=== PATIENT | male | born 1965 | race Caucasian/White ===

== ENCOUNTER 2017-04-12 14:42 | Emergency (ER) | payer OTHER ==
[~2017-04-12] VITALS: Ht 177.8 cm; Wt 81.6 kg
[~2017-04-12 14:42] MED LIST: CELE200C PO; FOLI-43 PO; METH2.5T PO; OMEP20CA10 PO; PLA200 PO; PRED2.5T4 PO
[2017-04-12 14:53] VITALS: BP_SYST 141
[2017-04-12] MEDS: ACETAMINOPHEN 325 MG TABLET PO ONE (15:39)
[2017-04-12] MEDS: IBUPROFEN 600 MG TABLET PO ONE (15:39)
[2017-04-12 18:20] VITALS: BP_SYST 140
== END 2017-04-12 18:20 | disposition home or self-care (01) ==
LOC: SED 14:42
DX: S32.2XXA Fracture of coccyx, initial encounter for closed fracture (principal); S09.90XA Unspecified injury of head, initial encounter; M25.522 Pain in left elbow; M06.9 Rheumatoid arthritis, unspecified; Z88.8 Allergy status to other drugs, medicaments and biological substances; W19.XXXA Unspecified fall, initial encounter; Y93.89 Activity, other specified; Y92.89 Other specified places as the place of occurrence of the external cause; Y99.8 Other external cause status
CPT/HCPCS: 70450-TC; 72125-TC; 72170-TC; 72220-TC; 99284

== ENCOUNTER 2019-06-20 09:31 | Emergency (ER) | payer OTHER ==
[~2019-06-20] VITALS: Ht 177.8 cm; Wt 81.6 kg
[~2019-06-20 09:31] MED LIST changes: +HYDR200T80 PO; -OMEP20CA10 PO; +OMEP20CA11 PO; -PLA200 PO
[2019-06-20 09:46] VITALS: BP_SYST 140
[2019-06-20] MEDS ORDERED: CHLORTHALIDONE PO (09:46)
[2019-06-20] MEDS ORDERED: PREDNISONE 20 MG TABLET PO ONE (10:00)
[2019-06-20] MEDS ORDERED: KETOROLAC TROMETHAMINE 60 MG/2 ML VIAL IM ONE (10:00)
[2019-06-20 11:06] VITALS: BP_SYST 140
== END 2019-06-20 11:07 | disposition home or self-care (01) ==
LOC: SED 09:31
DX: M13.80 Other specified arthritis, unspecified site (principal); Z79.899 Other long term (current) drug therapy; Z88.8 Allergy status to other drugs, medicaments and biological substances
CPT/HCPCS: 96372; 99283; J1885; J7512

== ENCOUNTER 2021-07-09 14:14 | Emergency (ER) | payer OTHER, MEDICAID ==
[~2021-07-09] VITALS: Ht 177.8 cm; Wt 83.9 kg
[~2021-07-09 14:14] MED LIST changes: +CHLORTHALIDONE PO; -HYDR200T80 PO; -OMEP20CA11 PO; +OMEP20CA15 PO
[2021-07-09 14:22] VITALS: BP_SYST 144
[2021-07-09 14:50] LABS: BASOPHILS # (AUTO) 0.1 K/uL (0.0-0.2); BASOPHILS % (AUTO) 0.6 % (0.0-2.0); EOSINOPHILS # (AUTO) 0.2 K/uL (0.0-0.4); EOSINOPHILS % (AUTO) 1.2 % (0.0-4.0); HEMATOCRIT 42.6 % (36-54); HEMOGLOBIN 14.3 g/dL (14.0-18.0); LYMPHOCYTES # (AUTO) 1.2 K/uL (1.0-5.5); LYMPHOCYTES % (AUTO) 9.4 % (20.5-51.5); MEAN CORPUSCULAR HEMOGLOBIN 30 pg (27-31); MEAN CORPUSCULAR HGB CONC 34 % (32-36); MEAN CORPUSCULAR VOLUME 89 fL (79.0-98.0); MONOCYTES # (AUTO) 0.6 K/uL (0.0-1.0); MONOCYTES % (AUTO) 5.2 % (1.7-9.3); NEUTROPHILS # (AUTO) 10.5 K/uL (1.8-7.7); NEUTROPHILS % (AUTO) 83.6 % (40.0-70.0); PLATELET COUNT (AUTO) 331 K/uL (130-430); RED CELL DISTRIBUTION WIDTH 13.5 % (9.0-15.0); WHITE BLOOD COUNT (AUTO) 12.6 K/uL (4.8-10.8)
[2021-07-09 15:08] LABS: CALCIUM 8.6 mg/dL (8.4-11.0); CREATININE 0.73 mg/dL (0.55-1.30); POTASSIUM 3.4 mmol/L (3.5-5.1)
[2021-07-09 15:17] LABS: ALBUMIN 3.1 g/dL (3.4-4.8); TOTAL BILIRUBIN 0.3 mg/dL (0.0-1.0)
[2021-07-09 16:26] LABS: BILIRUBIN,URINE NEGATIVE (NEGATIVE); BLOOD, URINE NEGATIVE (NEGATIVE); CLARITY/URINE CLEAR (CLEAR); COLOR,URINE YELLOW (YELLOW); GLUCOSE,URINE NEGATIVE (NEGATIVE); KETONES,URINE NEGATIVE (NEGATIVE); LEUKOCYTE ESTERASE ,URINE NEGATIVE (NEGATIVE); NITRITE, URINE NEGATIVE (NEGATIVE); PH,URINE 6.5 (5.0-8.0); PROTEIN URINE NEGATIVE (NEGATIVE); UROBILINOGEN,URINE 0.2 (0.2-1.0)
[2021-07-09 18:36] VITALS: BP_SYST 133
== END 2021-07-09 18:35 | disposition home or self-care (01) ==
LOC: SED 14:14
DX: R07.89 Other chest pain (principal); I10 Essential (primary) hypertension; Z88.8 Allergy status to other drugs, medicaments and biological substances; Z79.899 Other long term (current) drug therapy
CPT/HCPCS: 36415; 71045; 80053; 81003; 84484; 85025; 93005; 99285

== ENCOUNTER 2022-03-15 11:50 | Emergency (ER) | payer OTHER, MEDICAID ==
[~2022-03-15] VITALS: Ht 180.3 cm; Wt 83.9 kg
--- NOTE | 2022-03-15 11:52 | NUR ---
Pt brought by self, A&Ox4, pt presents to ER with lower back pain, blood and difficulty with urination, skin pink and warm, respirations even and unlabored, cap refill <3.
[2022-03-15 12:18] VITALS: BP_SYST 167
[2022-03-15 12:51] LABS: BILIRUBIN,URINE NEGATIVE (NEGATIVE); BLOOD, URINE 3+ (NEGATIVE); CLARITY/URINE CLOUDY (CLEAR); COLOR,URINE BROWN (YELLOW); GLUCOSE,URINE NEGATIVE (NEGATIVE); KETONES,URINE TRACE (NEGATIVE); LEUKOCYTE ESTERASE ,URINE NEGATIVE (NEGATIVE); NITRITE, URINE NEGATIVE (NEGATIVE); PROTEIN URINE 2+ (NEGATIVE); UROBILINOGEN,URINE 0.2 (0.2-1.0)
[2022-03-15 13:01] LABS: BASOPHILS # (AUTO) 0.1 K/uL (0.0-0.2); BASOPHILS % (AUTO) 0.6 % (0.0-2.0); EOSINOPHILS # (AUTO) 0.2 K/uL (0.0-0.4); EOSINOPHILS % (AUTO) 1.4 % (0.0-4.0); HEMATOCRIT 44.6 % (36-54); LYMPHOCYTES # (AUTO) 0.8 K/uL (1.0-5.5); LYMPHOCYTES % (AUTO) 6.7 % (20.5-51.5); MEAN CORPUSCULAR HEMOGLOBIN 30 pg (27-31); MEAN CORPUSCULAR HGB CONC 34 % (32-36); MEAN CORPUSCULAR VOLUME 88 fL (79.0-98.0); MONOCYTES # (AUTO) 0.7 K/uL (0.0-1.0); MONOCYTES % (AUTO) 6.4 % (1.7-9.3); NEUTROPHILS # (AUTO) 9.7 K/uL (1.8-7.7); NEUTROPHILS % (AUTO) 84.9 % (40.0-70.0); PLATELET COUNT (AUTO) 343 K/uL (130-430); RED BLOOD CELL COUNT(AUTO) 5.04 MIL/uL (4.2-6.2); RED CELL DISTRIBUTION WIDTH 13.6 % (9.0-15.0); WHITE BLOOD COUNT (AUTO) 11.4 K/uL (4.8-10.8)
[2022-03-15 13:23] LABS: BACTERIA,URINE None Seen /HPF (None Seen); MUCUS,URINE None Seen /LPF (None Seen); RBC,URINE 50-80 /HPF (0-3); WBC,URINE 0-3 /HPF (0-3)
[2022-03-15 13:44] LABS: CALCIUM 8.7 mg/dL (8.4-11.0); CREATININE 0.87 mg/dL (0.55-1.30)
[2022-03-15 13:48] LABS: ALBUMIN 3.4 g/dL (3.4-4.8); TOTAL BILIRUBIN 0.3 mg/dL (0.0-1.0)
--- NOTE | 2022-03-15 18:47 | NUR ---
Pt siting at this time, no s/s of distress, VSS, respiration even and unlabored
--- NOTE | 2022-03-15 19:38 | NUR ---
Received report from GUERDA Molina; assuming care of patient at this time.
--- NOTE | 2022-03-15 19:39 | NUR ---
Patient taken to CT accompanied by radiology.
[2022-03-15] MEDS ORDERED: KETOROLAC TROMETHAMINE 60 MG/2 ML VIAL IM ONE (19:45)
--- NOTE | 2022-03-15 19:50 | NUR ---
Patient back from CT accompanied by radiology.
[2022-03-15] MEDS ORDERED: TAMS-11 PO (21:35)
[2022-03-15] MEDS ORDERED: HYDR-3927 PO (21:35)
[2022-03-15] MEDS ORDERED: ONDA-8 TL (21:35)
--- NOTE | 2022-03-15 22:00 | NUR ---
Patient sitting upright in chair with safety precautions in place. Nad noted at this time.
[2022-03-15 22:15] VITALS: BP_SYST 167
--- NOTE | 2022-03-15 22:15 | NUR ---
Patient given written and verbal discharge instructions and verbalizes understanding. ER MD discussed with patient the results and treatment provided. Patient in stable condition. ID arm band removed. Rx of Flomax, [place], zofran given. Patient educated on pain management and to follow up with PMD. Pain Scale 3/10. Opportunity for questions provided and answered. Medication side effect fact sheet provided. Patient A/Ox4, VSS, ambulatory, resp even and unlabored. Patient in stable condition upon discharge.
== END 2022-03-15 22:15 | disposition home or self-care (01) ==
LOC: SED 11:50
DX: N23 Unspecified renal colic (principal); M54.50 Low back pain, unspecified; R30.0 Dysuria; Z79.899 Other long term (current) drug therapy
CPT/HCPCS: 99284; 74176; 80053; 81000; 85025; 36415; 76376; 96372; J1885

== ENCOUNTER 2023-10-30 21:11 | Emergency (ER) | payer OTHER, MEDICAID ==
[~2023-10-30] VITALS: Ht 180.3 cm; Wt 83.9 kg
[~2023-10-30 21:11] MED LIST changes: +HYDR-3927 PO; +ONDA-8 TL; +TAMS-11 PO
[2023-10-30 21:15] VITALS: BP_SYST 161; PULSE 103; RESP 24; TEMP 98.1; O2SAT 97
[2023-10-30] MEDS: IPRATROPIUM/ALBUTEROL SULFATE 3 ML AMPUL.NEB (DUONEB) INH ONE (21:45)
[2023-10-30 22:34] LABS: BASOPHILS % (AUTO) 0.5 % (0.0-2.0); EOSINOPHILS % (AUTO) 0.1 % (0.0-4.0); HEMATOCRIT 42.7 % (36-54); HEMOGLOBIN 14.5 g/dL (14.0-18.0); LYMPHOCYTES # (AUTO) 0.6 K/uL (1.0-5.5); LYMPHOCYTES % (AUTO) 11.6 % (20.5-51.5); MEAN CORPUSCULAR HEMOGLOBIN 29 pg (27-31); MEAN CORPUSCULAR HGB CONC 34 % (32-36); MEAN CORPUSCULAR VOLUME 86 fL (79.0-98.0); MONOCYTES # (AUTO) 0.5 K/uL (0.0-1.0); MONOCYTES % (AUTO) 8.2 % (1.7-9.3); NEUTROPHILS # (AUTO) 4.4 K/uL (1.8-7.7); NEUTROPHILS % (AUTO) 79.6 % (40.0-70.0); PLATELET COUNT (AUTO) 397 K/uL (130-430); RED BLOOD CELL COUNT(AUTO) 4.99 MIL/uL (4.2-6.2); RED CELL DISTRIBUTION WIDTH 14.6 % (9.0-15.0); WHITE BLOOD COUNT (AUTO) 5.5 K/uL (4.8-10.8)
[2023-10-30 22:38] LABS: ALCOHOL, BLOOD 151 mg/dL (<10); ANION GAP 14 (5-15); CALCIUM 9.3 mg/dL (8.4-11.0); CARBON DIOXIDE 20 mmol/L (23-29); CHLORIDE 106 mmol/L (98-107); CREATININE 1.05 mg/dL (0.55-1.30); GFR AFRICAN AMERICAN 93 mL/min (>90); GFR NON AFRICAN-AMERICAN 77 mL/min (>90); GLUCOSE 136 mg/dL (74-106); POTASSIUM 3.1 mmol/L (3.5-5.1); SODIUM SERUM 140 mmol/L (136-145); UREA NITROGEN, BLOOD 14 mg/dL (8-21)
[2023-10-30] MEDS: ONDANSETRON HCL 4 MG/2 ML VIAL IVP ONE (23:14)
[2023-10-30] MEDS ORDERED: iohexoL 350 mgI/mL, 100 ML INFUS..BTL IV ONE (23:41)
[2023-10-31] MEDS: ACETAMINOPHEN 500 MG TABLET PO ONE (01:43)
[2023-10-31 05:10] VITALS: BP_SYST 117; PULSE 73; RESP 20; TEMP 98; O2SAT 98
== END 2023-10-31 05:10 | disposition home or self-care (01) ==
LOC: SED 21:11
DX: F10.129 Alcohol abuse with intoxication, unspecified (principal); R06.02 Shortness of breath; I10 Essential (primary) hypertension; Z88.8 Allergy status to other drugs, medicaments and biological substances; Z79.899 Other long term (current) drug therapy; Y90.6 Blood alcohol level of 120-199 mg/100 ml
CPT/HCPCS: 36415; 71045; 71275; 80048; 83880; 84484; 85025; 85379; 93005; 94640; 96374; 99285; G0482; J2405; Q9967